=== PATIENT | female | born 1980 | race Caucasian/White ===

== ENCOUNTER 2018-03-16 12:48 | Emergency (ER) | payer OTHER ==
[~2018-03-16] VITALS: Ht 160 cm; Wt 65.5 kg
[~2018-03-16 12:48] MED LIST: ALBUTEROL0.09 MG/A4 IH; ATIVAN 1MG T1 MG/TAB PO; NO HOME MEDICATIONS; PERCOCET 325 MG1 TA2 PO; PHENERGAN 25 TA25 MG PO; REGLAN 10MG10 MG/TAB PO; ULTRAM 50MG TAB50 MG PO
[2018-03-16 12:52] VITALS: TEMP 97
[2018-03-16] MEDS ORDERED: PRENATAL PLUS (13:00)
[2018-03-16 13:07] LABS: COLLECTION METHOD CLEAN CATCH
[2018-03-16 13:19] LABS: AMORPHOUS CRYSTAL Present /uL; MUCOUS Present /lpf; PH 6 (5-8); SQUAMOUS EPITHELIAL 0-2 /hpf; URINE APPEARANCE Hazy; URINE BACTERIA None Seen /hpf; URINE BILIRUBIN Negative (NEGATIVE); URINE BLOOD Negative (NEGATIVE); URINE COLOR Yellow; URINE GLUCOSE 2+ (NEGATIVE); URINE KETONE Trace (NEGATIVE); URINE LEUKOCYTE ESTERASE Negative (NEGATIVE); URINE NITRATE Negative (NEGATIVE); URINE PROTEIN(semi-quant) Negative (NEGATIVE); URINE RBC 0-2 /hpf; URINE UROBILINOGEN Negative (NEGATIVE)
[2018-03-16 13:46] LABS: BASO % 0.2 % (0.0-2.0); EOS % 0.3 % (0-4.0); GRAN # 10.7 (1.4-6.5); GRAN % 78.3 % (42.2-75.2); HEMOGLOBIN 11.4 g/dl (12.5-16.0); LYMPH # 1.8 (1.2-3.4); LYMPH % 13.2 % (20.0-51.0); MEAN CELL VOLUME 95 fl (80.0-100.0); MEAN CORPUSCULAR HEMOGLOBIN 33 pg (27.0-31.0); MEAN CORPUSCULAR HGB CONC 35 g/dl (33.0-37.0); MONO # 0.9 (0.1-0.6); MONO % 6.7 % (1.7-9.3); PLATELET COUNT 287 K/mm3 (130-400); RED BLOOD COUNT 3.43 M/mm3 (4.10-5.30); REDCELL DISTRIBUTION WIDTH-CV 13.6 % (11.5-14.5)
[2018-03-16 13:56] LABS: ALANINE AMINOTRANSFERASE 26 U/L (9-52); ALBUMIN 3.4 gm/dL (3.5-5.0); ALKALINE PHOSPHATASE 68 U/L (50-136); ANION GAP 6 mmol/L (7-16); AST,SGOT 20 U/L (15-37); BILIRUBIN,TOTAL 0.2 mg/dL (0.0-1.0); BLOOD UREA NITROGEN 9 mg/dL (7-17); CALCIUM 9.3 mg/dL (8.4-10.2); CARBON DIOXIDE 22 mmol/L (22-30); CHLORIDE 109 mmol/L (98-107); CREATININE, serum 0.38 mg/dL (0.52-1.25); GLUCOSE 125 mg/dL (74-106); POTASSIUM 3.6 mmol/L (3.4-5.0); SODIUM 138 mmol/L (137-145); TOTAL PROTEIN 6.3 gm/dL (6.4-8.2)
[2018-03-16 13:58] LABS: HEMATOCRIT 32.5 % (37.0-47.0)
[2018-03-16 14:08] LABS: TROPONIN-I < 0.012 ng/mL (0.000-0.034)
[2018-03-16 17:41] VITALS: BP 115/59; PULSE 95
== END 2018-03-16 17:44 | disposition home or self-care (01) ==
LOC: COL.ER 12:48
PROVIDERS: Physician Assistant
DX: O26.892 Other specified pregnancy related conditions, second trimester (principal); O99.342 Other mental disorders complicating pregnancy, second trimester; R06.02 Shortness of breath; O99.512 Diseases of the respiratory system complicating pregnancy, second trimester; F41.9 Anxiety disorder, unspecified; F32.9 Major depressive disorder, single episode, unspecified; J45.909 Unspecified asthma, uncomplicated; Z88.0 Allergy status to penicillin; Z88.5 Allergy status to narcotic agent; Z3A.26 26 weeks gestation of pregnancy
CPT/HCPCS: J7030; Q9967

== ENCOUNTER 2018-07-02 11:48 | Inpatient (IN) | payer OTHER ==
[2018-07-02] VITALS (14 sets, daily range): BP systolic 105–159; BP diastolic 63–96; PULSE 90–132; TEMP 97.5–99
[~2018-07-02] VITALS: Ht 160 cm; Wt 76.8 kg
[~2018-07-02 11:48] MED LIST changes: +PRENATAL PLUS
--- NOTE | 2018-07-02 11:55 | NUR ---
Patient presents to unit with complaints of contractions that began at around midnight. Patient denies any leaking of fluid, or bleeding, reports good movement from baby. Patient states contractions were every 9-12 minutes apart during night, within last 30minutes reports every 3-5 minutes apart. SVE completed, patient tolerated well and noted /-2. Assement completed and patient placed on monitors. Will contiue to monitor.
--- NOTE | 2018-07-02 12:55 | NUR ---
1255-REVIEWED SVE AND FHR MONITOR WITH MD. ORDERS TO CONTINUE TO MONITOR UNTIL MD ARRIVES TO UNIT. 1320-MD ON UNIT REVIEWS EFM. ORDERS TO RECHECK PATIENT IN 10 MIN. 1330-PATIENT /-2. UPDATED MD. ORDERS RECIEVED TO ADMIT PATIENT. UPDATED PATIENT ON PLAN OF CARE.
--- NOTE | 2018-07-02 12:55 | NUR ---
SVE completed at 1 hour recheck, upon entering patients room discuss plan of care for if no change patient to discharge home, prenatals reviewed with along with FHR strip. 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 Patient agains states, " is not allowed in room." SVE completed on patient and noted no change, patient informed she will be discharged home at this time, due to no cervical chage. notified. And will inform of patient status.
--- NOTE | 2018-07-02 14:05 | NUR ---
IV started in right hand, blood drawn and to lab. Consents gone over and signed. Patient verbalizes understanding.
--- NOTE | 2018-07-02 14:29 | NUR ---
Patient off monitor to void. 1432: Patient back on monitor and on birthing ball. 1448: Maternal heart rate tracing due to position and leaning forward onto bed. 1451: Maternal heart rate tracing. 1456: Maternal heart rate tracing, patient repositioned. 1458: FHR baseline 130bpm and decreasing to 100-115bpm for 1-2 minutes and returns to baseline. Patient very uncomfortable with contractions and requesting pain medication. SVE-8/90/-1 and patient informed that she can no longer receive IV pain medication and patient verbalizes understanding. Patient requests for Doctor to come break water. This RN states that Dr. Sierra is the one avaliable an electronic warfare operator. Patient verbalizes understand and is okay with Dr. Sierra doing AROM and delivery. Dr. Sierra called and informed and states that she is on her way. 1512: Dr. Sierra at bedside and introduces herself and explains plan of care. 1515: SVE-8/90/-1 and AROM at this time with clear fluid noted. Plan of care discussed and patient left lateral position in bed. Has no needs at this time.
[2018-07-02 15:23] LABS: BASO % 0.3 % (0.0-2.0); EOS % 0.4 % (0-4.0); GRAN # 8.6 (1.4-6.5); GRAN % 77.1 % (42.2-75.2); HEMOGLOBIN 11.9 g/dl (12.5-16.0); LYMPH # 1.5 (1.2-3.4); LYMPH % 13.6 % (20.0-51.0); MEAN CELL VOLUME 95 fl (80.0-100.0); MEAN CORPUSCULAR HEMOGLOBIN 32 pg (27.0-31.0); MEAN CORPUSCULAR HGB CONC 34 g/dl (33.0-37.0); MEAN PLATELET VOLUME 10.5 fl (7.4-10.4); MONO # 0.9 (0.1-0.6); MONO % 7.8 % (1.7-9.3); PLATELET COUNT 232 K/mm3 (130-400); RED BLOOD COUNT 3.71 M/mm3 (4.10-5.30); REDCELL DISTRIBUTION WIDTH-CV 14.1 % (11.5-14.5)
[2018-07-02 15:25] LABS: HEMATOCRIT 35.4 % (37.0-47.0)
--- NOTE | 2018-07-02 15:35 | NUR ---
SVE-[address] Sierra continues to sit at nurses station and reviewing FHR strip and notified of SVE. 1550: SVE- and Dr. Sierra notified. Patient right lateral and this RN and at bedside supporting patient through contractions. 1607: FHR baseline 125-130bpm and decreases to 100-115 bpm 70 seconds and returns to baseline. 1610: Patient states she is having difficulty breathing and would like some oxygen. 1612: Oxygen on at 10ml/hr via mask at this time. Patient states "i need to poop and push" 1620:Dr Sierra at bedside and SVE per physician /+2 at this time. Patient prepped for delivery,bed taken apart, and pericare done. Feet in stirrups. Patient begins to push with . FHR showing variable decelerations. 1630: Spontaneous vaginal delivery of head followed by body. Infant bulb syinged and to patients abdomen, where Cheri RN assumes care on . Cord clamped by physician and cut by FOB. 1638: Spontaneous vaginal delivery of placenta and patient refuses pitocin bolus. Dr. Sierra aware of refusal. 1640: Dr. Sierra explains plan of repair and lidocaine. Lidocaine injected to perineum per physician and Dr. Sierra begins to repair laceration. Fundal massage done, bleeding moderate, clots removed, fundus firm. 1650: Patient repositioned and ice pack to perineum. Plan of care discussed and will continue to monitor. Fundus firm/bleeding WNL.
[2018-07-03] VITALS: BP 119/85; PULSE 101; TEMP 98.7
[2018-07-03 04:00] VITALS: BP 121/70; PULSE 91; TEMP 97.8
[2018-07-03 08:10] VITALS: BP 113/68; PULSE 124; TEMP 97.9
[2018-07-03 11:45] VITALS: BP 116/83; PULSE 118; TEMP 97.9
[2018-07-03 16:23] VITALS: BP 121/74; PULSE 94
[2018-07-03 20:21] VITALS: BP 118/79; PULSE 96; TEMP 98.1
[2018-07-04 07:39] VITALS: BP 126/78; PULSE 91; TEMP 97.6
--- NOTE | 2018-07-04 11:30 | NUR ---
Discharge instructions given, pt verbalizes understanding. No further questions. Bands matched and hugs tag removed. 1200: to carseat and to personal vehicle.
== END 2018-07-04 12:00 | disposition home or self-care (01) | DRG 807 ==
LOC: LDRO 11:48 → LDR 11:55 → LDRO 13:42 → LDR 13:43 → OB 19:00
PROVIDERS: ADMIT Student in an Organized Health Care Education/Training Program
PROC: 10E0XZZ Delivery of Products of Conception, External Approach (ICD-10-PCS; principal; 2018-07-02)
PROC: 0KQM0ZZ Repair Perineum Muscle, Open Approach (ICD-10-PCS; 2018-07-02)
DX: O48.0 Post-term pregnancy (principal); Z37.0 Single live birth; Z3A.40 40 weeks gestation of pregnancy; O76 Abnormality in fetal heart rate and rhythm complicating labor and delivery; O70.1 Second degree perineal laceration during delivery; J45.909 Unspecified asthma, uncomplicated; O99.344 Other mental disorders complicating childbirth; F41.9 Anxiety disorder, unspecified; F60.5 Obsessive-compulsive personality disorder; O69.81X0 Labor and delivery complicated by cord around neck, without compression, not applicable or unspecified